=== PATIENT | female | born 1975 | race Two or more races ===

== ENCOUNTER 2018-06-15 16:18 | Inpatient (IN) | payer OTHER ==
[2018-06-15 16:31] VITALS: BMI 26.5
--- NOTE | 2018-06-15 19:15 | PDOC ---
History of Present Illness - General Chief Complaint: Pain, Acute Stated Complaint: FEVER/ABD PAIN Time Seen by Provider: 06/15/18 19:15 - History of Present Illness Initial Comments: 43 year old female with PMH of one kidney presenting with right sided flank pain and right sided abdominal pain for the past 2 days. This started all of a sudden yesterday afternoon and she describes it as a sharp pain that radiates up and down her right flank, right back, and right abdomen. She admits to one fever yesterday 102 degrees. She did not take any medication for her symptoms. No prandial or positional relation pain and she denies nausea, vomiting, diarrhea, or other symptoms. 06/15/18 20:18 Past History - Past Medical History Allergies/Adverse Reactions: Allergies Allergy/AdvReac Type Severity Reaction Status Date / Time No Known Allergies Allergy Verified 06/15/18 16:28 Home Medications: Ambulatory Orders Oxycodone HCl/Acetaminophen [Percocet 5-325 mg Tablet] 1 - 2 tab PO Q6H #20 tablet MDD 4 11/03/15 Acetaminophen [Tylenol .Regular Strength -] 650 mg PO Q6H PRN #0 tablet Cephalexin [Keflex] 500 mg PO TID #21 capsule 11/08/15 Ibuprofen [Motrin -] 600 mg PO Q6H PRN #30 tablet 11/08/15 Mag Hydrox/Al Hydrox/Simeth [Mylanta Oral Suspension -] 30 ml PO Q8H PRN #0 cup 11/08/15 Anemia: No Asthma: No Cancer: No Cardiac Disorders: No CVA: No COPD: No HTN: No Seizures: No Thyroid Disease: No - Immunization History Immunization Up to Date: Yes - Suicide/Smoking/Psychosocial Hx Smoking History: Never smoked Have you smoked in the past 12 months: No Hx Alcohol Use: No Drug/Substance Use Hx: No Substance Use Type: None Review of Systems - Review of Systems Constitutional: No: See HPI, Chills, Diaphoresis, Fever Respiratory: No: Cough, Orthopnea, Shortness of Breath Cardiac (ROS): No: Chest Pain, Irregular Heart Rate ABD/GI: No: Constipated, Diarrhea, Nausea, Vomiting : No: Dysuria, Discharge Musculoskeletal: No: Back Pain Integumentary: No: Flushing, Lesions, Lumps Neurological: No: Numbness, Weakness Psychiatric: No: Anxiety, Depression *Physical Exam - Vital Signs Last Vital Signs Temp Pulse Resp BP Pulse Ox 98.5 F 102 H 18 117/69 100 06/15/18 16:29 06/15/18 16:29 06/15/18 16:29 06/15/18 16:29 06/15/18 16:29 - Physical Exam General Appearance: Yes: Nourished, Appropriately Dressed. No: Apparent Distress HEENT: positive: EOMI, JC, Normal ENT Inspection, Normal Voice Neck: positive: Trachea midline, Normal Thyroid, Supple. negative: Tender, Rigid Respiratory/Chest: positive: Lungs Clear, Normal Breath Sounds. negative: Chest Tender, Respiratory Distress, Accessory Muscle Use Cardiovascular: positive: Regular Rhythm, Regular Rate Gastrointestinal/Abdominal: positive: Normal Bowel Sounds, Flat, Soft. negative : Tender Lymphatic: negative: Tenderness Musculoskeletal: positive: CVA Tenderness (right sided) Extremity: positive: Normal Capillary Refill, Normal Inspection, Normal Range of Motion. 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 CT not demonstrating stone but given she has one kidney (and now infected), it is prudent to bring her in for IV antibiotics. Further corroborating admission criteria, she does meet SIRS criteria and subsequently sepsis. Given Rocephin 1G and 1 L NS. 06/15/18 23:06 Signed out to medicine team and will be admitted under Dr. Osborn. 06/16/18 00:30 *DC/Admit/Observation/Transfer Diagnosis at time of Disposition: Renal agenesis, Pyelonephritis Sepsis Qualifiers: Sepsis type: sepsis due to unspecified organism Qualified Code(s): A41.9 - Sepsis, unspecified organism - Discharge Dispostion Condition at time of disposition: Stable Decision to Admit order: Yes - Referrals Referrals: Mariajose Guevara MD [Primary Care Provider] - - Patient Instructions - Post Discharge Activity
[2018-06-15] MEDS ORDERED: ACETAMINOPHEN 1000 MG/100 ML VIAL (NON FORMULARY) IVPB ONE (19:35)
[2018-06-15] MEDS ORDERED: ACETAMINOPHEN INJECTION 100 ML IVPB ONE (20:10)
[2018-06-15 20:16] LABS: BASO % 0.4 % (0-2.0); HEMOGLOBIN 13.7 GM/dL (10.7-15.3); LYMPH % 5.2 % (8-40); MCH 31.8 pg (25.7-33.7); MCHC 33.5 g/dl (32.0-36.0); MEAN PLT VOLUME 9.5 fl (7.5-11.1); NEUT % 86.4 % (42.8-82.8); PLATELET COUNT 188 K/MM3 (134-434); RBC 4.31 M/mm3 (3.60-5.2); RDW 13.9 % (11.6-15.6); WHITE BLOOD COUNT 14.3 K/mm3 (4.0-10.0)
[2018-06-15 20:36] LABS: INR 1.36 (0.83-1.09); PROTHROMBIN TIME (PATIENT) 16.1 SEC (9.7-13.0)
[2018-06-15 20:37] LABS: EPI CELLS 6.6 /HPF (0-5/HPF); HCG,QUALITATIVE URINE Negative; PH,URINE 7.5 (5.0-8.0); URINE APPEARANCE CLEAR; URINE BACTERIA 8550.6 /hpf (NEGATIVE); URINE BILIRUBIN NEGATIVE (NEGATIVE); URINE CASTS 1 /lpf (0-8); URINE COLOR YELLOW; URINE GLUCOSE (UA) NEGATIVE (NEGATIVE); URINE KETONE TRACE (NEGATIVE); URINE LEUK ESTERASE 1+ (NEGATIVE); URINE NITRITE POSITIVE (NEGATIVE); URINE PROTEIN NEGATIVE (NEGATIVE); URINE RBC 9 /hpf (0-4); URINE UROBILINOGEN 0.2 mg/dL (0.2-1.0); URINE WBC 16 /hpf (0-5)
--- NOTE | 2018-06-15 20:38 | PDOC ---
Documentation entered by Placido Flores SCRIBE, acting as scribe for Kan Loaiza MD. Kan Loaiza MD: This documentation has been prepared by the Sandra dumont Nirvannie, SCRIBE, under my direction and personally reviewed by me in its entirety. I confirm that the documentation accurately reflects all work, treatment, procedures, and medical decision making performed by me. Attending Attestation - Resident Resident Name: Yony Landmoreliahuong - ED Attending Attestation I have performed the following: I have examined & evaluated the patient, The case was reviewed & discussed with the resident, I agree w/resident's findings & plan - HPI HPI: 06/15/18 20:42 The patient is a 43 year old female, with a significant past medical history of unknown kidney problems, who presents to the emergency department with, right sided flank pain radiating to her right sided abdomen and fever (Tmax 102F). Patient denies any nausea, vomiting, or diarrhea. Allergies: NKDA Primary Care Physician: Dr. Guevara - Physicial Exam PE: 06/15/18 20:32 Patient is awake and alert, obese, in mild distress Normocephalic and atraumatic PERRLA, EOMI, no scleral icterus CTA RRR abdomen is soft, nontender, nondistended; + right CVA tenderness to palpation - Medical Decision Making 06/15/18 20:33 Patient is a 43-year-old female with history of unilateral renal agenesis presents with atraumatic right flank pain. Differential diagnoses includes pyelonephritis versus nephrolithiasis. Appendicitis is unlikely. We'll obtain CBC/CMP/UA. Will obtain CT of abdomen and pelvis. Will reassess. 06/15/18 23:19 Patient reassessed. Right CVA tenderness noted. CBC reveals leukocytosis with predominance of neutrophils. Urinalysis reveals nitrite positive pyuria. CT of abdomen and pelvis reveals hypertrophic right kidney likely compensatory in nature without evidence of hydronephrosis or nephrolithiasis. Clinical pyelonephritis in a patient with solitary kidney is suspected. Patient will require admission for IV antibiotics.
[2018-06-15 20:40] LABS: ALBUMIN 3.4 g/dl (3.4-5.0); ALK PHOS 85 U/L (45-117); AMYLASE 82 U/L (25-115); ANION GAP 7 MMOL/L (8-16); BILIRUBIN,TOTAL 0.4 mg/dL (0.2-1); BLOOD UREA NITROGEN 10 mg/dL (7-18); CHLORIDE 104 mmol/L (98-107); CO2 26 mmol/L (21-32); CREATININE 0.9 mg/dL (0.55-1.3); GLUCOSE,RANDOM 102 mg/dL (74-106); LIPASE 116 U/L (73-393); POTASSIUM 4.2 mmol/L (3.5-5.1); SGOT/AST 17 U/L (15-37); SGPT/ALT 26 U/L (13-61); SODIUM 137 mmol/L (136-145); TOT PROT 7.4 g/dl (6.4-8.2)
[2018-06-15 20:55] LABS: CALCIUM 9.1 mg/dL (8.5-10.1)
[2018-06-15] MEDS ORDERED: CEFTRIAXONE 1,000 MG in DEXTROSE 5%-WATER - 50 ML IVPB ONE (22:08)
[2018-06-15] MEDS ORDERED: CEFTRIAXONE 1 GM/50 ML BAG ONE (22:36)
--- NOTE | 2018-06-15 23:14 | PN ---
Teaching Attending Note Name of Resident: Chela Mcnair ATTENDING PHYSICIAN STATEMENT I saw and evaluated the patient. I reviewed the resident's note and discussed the case with the resident. I agree with the resident's findings and plan as documented. SUBJECTIVE: Patient is a 43 year old woman with PMH of solitary right kidney presenting with right sided flank pain and right sided abdominal pain for the past 2 days. This started all of a sudden yesterday afternoon and she describes it as a sharp pain that radiates up and down her right flank, right back, and right abdomen. She admits to one fever yesterday 102 degrees. She did not take any medication for her symptoms. No prandial or positional relation pain and she denies nausea, vomiting, diarrhea, or other symptoms. OBJECTIVE: Alert Vital Signs Period Temp Pulse Resp BP Sys/Harris Pulse Ox Last 24 Hr 98.5 F-98.8 F 102-109 18-18 104-117/64-69 100 HEENT: No Jaundice, eye redness or discharge, PERRLA, EOMI. Normocephalic, atraumatic. External ears are normal and hearing is grossly intact. No nasal discharge. Neck: Supple, nontender. No palpable adenopathy or thyromegaly. No JVD Chest: Good effort. Clear to auscultation and percussion. Heart: Regular. No S3, rub or murmur Abdomen: Not distended, soft, nontender and no HSM. No rebound or guarding. Normal bowel sounds. Ext: Peripheral pulses intact. No leg edema. Skin: Warm and dry. No petechiae, rash or ecchymosis. Neuro: Alert. Oriented x3. CN 2-12 grossly intact. Sensation grossly intact in all four extremities and DTR are symmetric. Psych: Appropriate mood and affect. Good insight. Home Medications Medication Instructions Recorded Oxycodone HCl/Acetaminophen 1 - 2 tab PO Q6H #20 tablet MDD 4 11/03/15 [Percocet 5-325 mg Tablet] Acetaminophen [Tylenol .Regular 650 mg PO Q6H PRN #0 tablet 11/08/15 Strength -] Cephalexin [Keflex] 500 mg PO TID #21 capsule 11/08/15 Ibuprofen [Motrin -] 600 mg PO Q6H PRN #30 tablet 11/08/15 Mag Hydrox/Al Hydrox/Simeth 30 ml PO Q8H PRN #0 cup 11/08/15 [Mylanta Oral Suspension -] Abnormal Lab Results 06/15/18 06/15/18 06/15/18 20:00 20:00 20:00 WBC 14.3 H Absolute Neuts (auto) 12.3 H Neutrophils % 86.4 H D Lymphocytes % 5.2 L D PT with INR 16.10 H INR 1.36 H Anion Gap 7 L Urine Ketones Urine Blood Urine Nitrite Ur Leukocyte Esterase 06/15/18 20:15 WBC Absolute Neuts (auto) Neutrophils % Lymphocytes % PT with INR INR Anion Gap Urine Ketones Trace H Urine Blood 1+ H Urine Nitrite Positive H Ur Leukocyte Esterase 1+ H ASSESSMENT AND PLAN: 1. Solitary right kidney/Pyelonephritis - CT scan shows large right kidney with no calculus or hydronephrosis. 2. DVT prophylaxis - Lovenox 40 mg SQ q 24 hours. 3. Advance directives - Full code
--- NOTE | 2018-06-16 02:29 | HP ---
CHIEF COMPLAINT: R- Flank Pain, R- sided Abdominal Pain PCP: Dr. Derek Walter HISTORY OF PRESENT ILLNESS: This is a 43 y/o young woman with a PMHx of One Kidney. Who presents to the ED with severe right flank pain and right sided abdominal pain with subjective fever 104 and chills x 2 days. Patient is Indonesian speaking [employer] line used # [id number], Michelle. Patient reports having flank and right sided pain x 2 days with fever from 102- 104 at home taking Tylenol which reduced the fever but no pain relief. Patient denies dysuria and frequency. Patient denies cough, dizziness, SOB, CP, N/V/D, constipation. Patient denies recent sick contacts. ER course was notable for: (1) WBC 14.3 (2) UA- trace ketones, +1 blood, +3 nitrate, +1 leukoctye esterase (3) CTAP_ R- kidney parenchymal swelling- acute pyelonephritis, L- kidney severe atrophy Recent Travel: None PAST MEDICAL HISTORY: One Kidney PAST SURGICAL HISTORY: Childbirth Social History: Smoking: Never Alcohol: Denies Drugs: Denies Lives with her daughter Family History: Father: Diabetes Mother: HTN Allergies No Known Allergies Allergy (Verified 06/15/18 16:28) HOME MEDICATIONS: Home Medications Medication Instructions Recorded Oxycodone HCl/Acetaminophen 1 - 2 tab PO Q6H #20 tablet MDD 4 11/03/15 [Percocet 5-325 mg Tablet] Acetaminophen [Tylenol .Regular 650 mg PO Q6H PRN #0 tablet 11/08/15 Strength -] Cephalexin [Keflex] 500 mg PO TID #21 capsule 11/08/15 Ibuprofen [Motrin -] 600 mg PO Q6H PRN #30 tablet 11/08/15 Mag Hydrox/Al Hydrox/Simeth 30 ml PO Q8H PRN #0 cup 11/08/15 [Mylanta Oral Suspension -] REVIEW OF SYSTEMS CONSTITUTIONAL: Absent: fever, chills, diaphoresis, generalized weakness, malaise, loss of appetite, weight change HEENT: Absent: rhinorrhea, nasal congestion, throat pain, throat swelling, difficulty swallowing, mouth swelling, ear pain, eye pain, visual changes CARDIOVASCULAR: Absent: chest pain, syncope, palpitations, irregular heart rate, lightheadedness , peripheral edema RESPIRATORY: Absent: cough, shortness of breath, dyspnea with exertion, orthopnea, wheezing, stridor, hemoptysis GASTROINTESTINAL: abdominal pain, Absent: abdominal distension, nausea, vomiting, diarrhea, constipation, melena, hematochezia GENITOURINARY: right flank pain Absent: dysuria, frequency, urgency, hesitancy, hematuria, genital pain MUSCULOSKELETAL: Absent: myalgia, arthralgia, joint swelling, back pain, neck pain SKIN: Absent: rash, itching, pallor HEMATOLOGIC/IMMUNOLOGIC: Absent: easy bleeding, easy bruising, lymphadenopathy, frequent infections ENDOCRINE: Absent: unexplained weight gain, unexplained weight loss, heat intolerance, cold intolerance NEUROLOGIC: Absent: headache, focal weakness or paresthesias, dizziness, unsteady gait, seizure, mental status changes, bladder or bowel incontinence PSYCHIATRIC: Absent: anxiety, depression, suicidal or homicidal ideation, hallucinations. PHYSICAL EXAMINATION Vital Signs - 24 hr 06/15/18 06/15/18 16:29 21:09 Temperature 98.5 F 98.8 F Pulse Rate 102 H Pulse Rate [ 109 H Left] Respiratory 18 18 Rate Blood Pressure 117/69 Blood Pressure 104/64 [Left] O2 Sat by Pulse 100 Oximetry (%) GENERAL: Awake, alert, and fully oriented, in no acute distress. HEAD: Normal with no signs of trauma. EYES: Pupils equal, round and reactive to light, extraocular movements intact, sclera anicteric, conjunctiva clear. No lid lag. EARS, NOSE, THROAT: Ears normal, nares patent, oropharynx clear without exudates. Dry mucous membranes. NECK: Normal range of motion, supple without lymphadenopathy, JVD, or masses. LUNGS: Breath sounds equal, clear to auscultation bilaterally. No wheezes, and no crackles. No accessory muscle use. HEART: Regular rate and rhythm, normal S1 and S2 without murmur, rub or gallop. ABDOMEN: Soft, tenderness to RUQ, RLQ, not distended, normoactive bowel sounds, no guarding, no rebound, no masses. No hepatomegaly or splenomegaly. MUSCULOSKELETAL: Right CVA tenderness. Normal range of motion at all joints. No bony deformities or tenderness. No Left CVA tenderness. UPPER EXTREMITIES: 2+ pulses, warm, well-perfused. No cyanosis. No clubbing. No peripheral edema. LOWER EXTREMITIES: 2+ pulses, warm, well-perfused. No calf tenderness. No peripheral edema. NEUROLOGICAL: Cranial nerves II-XII intact. Normal speech. Normal gait. PSYCHIATRIC: Cooperative. Good eye contact. Appropriate mood and affect. SKIN: Warm, dry, normal turgor, no rashes or lesions noted, normal capillary refill. Tattoos Laboratory Results - last 24 hr 06/15/18 06/15/18 06/15/18 20:00 20:00 20:00 WBC 14.3 H RBC 4.31 Hgb 13.7 Hct 41.0 MCV 95.0 MCH 31.8 MCHC 33.5 RDW 13.9 Plt Count 188 D MPV 9.5 D Absolute Neuts (auto) 12.3 H Neutrophils % 86.4 H D Lymphocytes % 5.2 L D Monocytes % 8.0 Eosinophils % 0.0 D Basophils % 0.4 Nucleated RBC % 0 PT with INR 16.10 H INR 1.36 H Sodium 137 Potassium 4.2 Chloride 104 Carbon Dioxide 26 Anion Gap 7 L BUN 10 Creatinine 0.9 Creat Clearance w eGFR 67.71 Random Glucose 102 Calcium 9.1 Total Bilirubin 0.4 AST 17 ALT 26 Alkaline Phosphatase 85 Total Protein 7.4 Albumin 3.4 Total Amylase 82 Lipase 116 Urine Color Urine Appearance Urine pH Ur Specific Braxton Urine Protein Urine Glucose (UA) Urine Ketones Urine Blood Urine Nitrite Urine Bilirubin Urine Urobilinogen Ur Leukocyte Esterase Urine WBC (Auto) Urine RBC (Auto) Urine Casts (Auto) U Epithel Cells (Auto) Urine Bacteria (Auto) Urine HCG, Qual 06/15/18 20:15 WBC RBC Hgb Hct MCV MCH MCHC RDW Plt Count MPV Absolute Neuts (auto) Neutrophils % Lymphocytes % Monocytes % Eosinophils % Basophils % Nucleated RBC % PT with INR INR Sodium Potassium Chloride Carbon Dioxide Anion Gap BUN Creatinine Creat Clearance w eGFR Random Glucose Calcium Total Bilirubin AST ALT Alkaline Phosphatase Total Protein Albumin Total Amylase Lipase Urine Color Yellow Urine Appearance Clear Urine pH 7.5 D Ur Specific Braxton 1.010 Urine Protein Negative Urine Glucose (UA) Negative Urine Ketones Trace H Urine Blood 1+ H Urine Nitrite Positive H Urine Bilirubin Negative Urine Urobilinogen 0.2 Ur Leukocyte Esterase 1+ H Urine WBC (Auto) 16 Urine RBC (Auto) 9 Urine Casts (Auto) 1 U Epithel Cells (Auto) 6.6 Urine Bacteria (Auto) 8550.6 Urine HCG, Qual Negative ASSESSMENT/PLAN: This is a 43 y/o woman admitted for Acute Pyelonephritis, Complicated UTI for further evaluation of their emergent condition. Plan: See Problem List FEN D51/2NS@100ml/hr Replete lytes prn NPO advance ad nelda DVT ppx OOB SCDs Heparin SQ Code: Full Code Dispo: Requires Inpatient Care Problem List - Problem (1) Pyelonephritis Assessment/Plan: Likely secondary to UTI UA showed +1 blood/leukocyte esterase, +nitrate, trace ketones Urine Culture-pending Ceftriaxone started Will continue as 2nd line therapy awaiting culture-reports Appreciate Urology Consult Monitor CBC, BMP Monitor vitals Continue IVF Pain Mgmt, Morphine IV until able tolerate PO pain meds Code(s): N12 - TUBULO-INTERSTITIAL NEPHRITIS, NOT SPCF ACUTE OR CHRONIC (2) UTI (urinary tract infection) Assessment/Plan: Will treat for 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 - New Patient This patient is new to me today: Yes Date on this admission: 06/16/18 - Critical Care Critical Care patient: No
[2018-06-16] MEDS ORDERED: MORPHINE SULFATE 2 MG/ML VIAL IVPUSH ONE (03:17)
[2018-06-16] MEDS: DEXTROSE 5%-0.45% SALINE 1,000 ML IV SCH ×2 (03:46→16:46)
[2018-06-16] MEDS: HEPARIN NA (PORCINE) 5,000 UNITS/ML 1ML VIAL SQ SCH ×3 (06:04→22:01)
[2018-06-16 08:47] LABS: BASO % 0.2 % (0-2.0); EOS % 0.1 % (0-4.5); HEMATOCRIT 36.8 % (32.4-45.2); HEMOGLOBIN 12.6 GM/dL (10.7-15.3); LYMPH % 4.7 % (8-40); MCH 32.1 pg (25.7-33.7); MCHC 34.2 g/dl (32.0-36.0); MEAN CELL VOLUME 94.1 fl (80-96); MEAN PLT VOLUME 9.3 fl (7.5-11.1); MONO % 9.5 % (3.8-10.2); NEUT % 85.5 % (42.8-82.8); PLATELET COUNT 170 K/MM3 (134-434); RBC 3.91 M/mm3 (3.60-5.2); RDW 13.7 % (11.6-15.6); WHITE BLOOD COUNT 10.5 K/mm3 (4.0-10.0)
[2018-06-16 09:17] LABS: ANION GAP 8 MMOL/L (8-16); BLOOD UREA NITROGEN 9 mg/dL (7-18); CALCIUM 8.2 mg/dL (8.5-10.1); CHLORIDE 108 mmol/L (98-107); CO2 23 mmol/L (21-32); CREATININE 0.9 mg/dL (0.55-1.3); GLUCOSE,RANDOM 122 mg/dL (74-106); POTASSIUM 3.7 mmol/L (3.5-5.1); SODIUM 140 mmol/L (136-145)
--- NOTE | 2018-06-16 10:56 | PN ---
Progress Note, Physician Chief Complaint: Pyelonephritis L Kidney atrophy History of Present Illness: Previous notes and events reviewed awake and alert NAD denies hematuria, dysuria c/o RLQ and flank pain - Current Medication List Current Medications: Active Medications Heparin Sodium (Porcine) (Heparin -) 5,000 unit SQ TID [facility] Last Admin: 06/16/18 06:04 Dose: Not Given Dextrose/Sodium Chloride (D5-1/2ns -) 1,000 mls @ 100 mls/hr IV ASDIR [facility] Last Admin: 06/16/18 03:46 Dose: 100 mls/hr - Objective Vital Signs: Vital Signs Temperature 98.2 F 06/16/18 09:46 Pulse Rate 96 H 06/16/18 09:46 Respiratory Rate 18 06/16/18 09:46 Blood Pressure 101/58 L 06/16/18 09:46 O2 Sat by Pulse Oximetry (%) 98 06/16/18 05:34 Constitutional: Yes: No Distress, Calm Eyes: Yes: Conjunctiva Clear HENT: Yes: Atraumatic Cardiovascular: Yes: Regular Rate and Rhythm Respiratory: Yes: Regular, CTA Bilaterally Gastrointestinal: Yes: Normal Bowel Sounds, Soft, Tenderness (RLQ) Genitourinary: Yes: CVA Tenderness - Right Musculoskeletal: Yes: WNL Extremities: Yes: WNL Edema: No Neurological: Yes: Alert, Oriented Psychiatric: Yes: Alert, Oriented Labs: CBC, BMP 06/16/18 08:30 06/16/18 08:30 INR, PTT INR 1.36 (0.83-1.09) H 06/15/18 20:00 - ....Imaging Cat Scan: Report Reviewed Problem List - Problems (1) Pyelonephritis Assessment/Plan: -Abd CT scan shows R kidney is somewhat enlarged measuring 12 x 6.7 x 6.4cm which may be on the basis of compensatory hypertrophy and/or parenchymal swelling -IV Ceftriaxone -WBC 10.5 -afebrile -UA shows trace ketones, blood 1+, nitrite positive, leuk 1+ -UC pending -urology consult -IV hydration -pain management Code(s): N12 - TUBULO-INTERSTITIAL NEPHRITIS, NOT SPCF ACUTE OR CHRONIC (2) Renal agenesis Assessment/Plan: -renal consult -Abd CT scan shows very small amount of residual renal tissue seen within L renal fossa measuring 2x 1.2 x 0.5cm and 1.3cm cyst seen projecting posteriorly from residual renal tissue -BUN/Cr 9/0.9 Code(s): Q60.2 - RENAL AGENESIS, UNSPECIFIED (3) UTI (urinary tract infection) Assessment/Plan: -IV Ceftriaxone -ID consult -WBC 10.5 -afebrile -UA shows trace ketones, blood 1+, nitrite positive, leuk 1+ -UC pending -urology consult -IV hydration -pain management Code(s): N39.0 - URINARY TRACT INFECTION, SITE NOT SPECIFIED Assessment/Plan see problem list dvt ppx
--- NOTE | 2018-06-16 12:00 | PN ---
Progress Note (short form) - Note Progress Note: ID consult dictated imp/reccd probable pyelonephritis continue rocephin no history of MRDO history onf only one functional kidney- would avoid nephrotoxic drugs f/u cultures dw hospitalist Problem List - Problems (1) Pyelonephritis Code(s): N12 - TUBULO-INTERSTITIAL NEPHRITIS, NOT SPCF ACUTE OR CHRONIC (2) Solitary kidney Code(s): Q60.0 - RENAL AGENESIS, UNILATERAL
--- NOTE | 2018-06-16 12:43 | CONSULT ---
Consult Consult Specialty:: Nephrology ( [facility]/ [facility]) Reason for Consultation:: Patiet with unilateral renal agenesis admitted with acute pyelonephritis of the solitary kidney. - History of Present Illness Chief Complaint: Right flank pains. History of Present Illness: 43 year old female with PMH of left renal agenesis presenting with right sided flank pain and right sided abdominal pain. She admits to one episode of fever yesterday 102 degrees. She is known to have left renal agenesis. Renal fuctions and BP normal. - History Source History Provided By: Patient Limitations to Obtaining History: No Limitations - Past Medical History Cardio/Vascular: No: CHF, HTN Pulmonary: No: Asthma Gastrointestinal: No: Ascites, Cancer, Constipation, Inflamatory Bowel Disease Renal/: No: Renal Failure, Renal Inusuff, Hematuria, Renal Calculi ...LMP: 11/03/15 - Alcohol/Substance Use Hx Alcohol Use: No - Smoking History Smoking history: Never smoked Have you smoked in the past 12 months: No Home Medications - Allergies Allergies/Adverse Reactions: Allergies Allergy/AdvReac Type Severity Reaction Status Date / Time No Known Allergies Allergy Verified 06/15/18 16:28 - Home Medications Home Medications: Ambulatory Orders Oxycodone HCl/Acetaminophen [Percocet 5-325 mg Tablet] 1 - 2 tab PO Q6H #20 tablet MDD 4 11/03/15 Acetaminophen [Tylenol .Regular Strength -] 650 mg PO Q6H PRN #0 tablet Cephalexin [Keflex] 500 mg PO TID #21 capsule 11/08/15 Ibuprofen [Motrin -] 600 mg PO Q6H PRN #30 tablet 11/08/15 Mag Hydrox/Al Hydrox/Simeth [Mylanta Oral Suspension -] 30 ml PO Q8H PRN #0 cup 11/08/15 Review of Systems - Review of Systems Constitutional: reports: Chills, Fever, Weakness. denies: Loss of Appetite HENT: denies: Difficult Swallowing Neck: denies: Decreased ROM Cardiovascular: denies: Chest Pain, Palpitations, Shortness of Breath Respiratory: denies: Cough, SOB Gastrointestinal: reports: Abdominal Pain. denies: Vomiting Genitourinary: reports: Flank Pain, Frequency. denies: Burning, Dysuria, Hematuria Physical Exam Vital Signs: Vital Signs Temperature 98.2 F 06/16/18 09:46 Pulse Rate 96 H 06/16/18 09:46 Respiratory Rate 18 06/16/18 09:46 Blood Pressure 101/58 L 06/16/18 09:46 O2 Sat by Pulse Oximetry (%) 98 06/16/18 05:34 Constitutional: Yes: Well Nourished, Anxious Eyes: Yes: Conjunctiva Clear HENT: Yes: Normocephalic Neck: Yes: Trachea Midline Cardiovascular: Yes: Regular Rate and Rhythm, S1, S2 Respiratory: Yes: CTA Bilaterally Gastrointestinal: Yes: Normal Bowel Sounds, Soft, Abdomen, Obese, Tenderness Renal/: Yes: CVA Tenderness - Right Edema: No Labs: CBC, BMP 06/16/18 08:30 06/16/18 08:30 Assessment/Plan 43 year old female with PMH of left renal agenesis presenting with right sided flank pain and right sided abdominal pain. She admits to one episode of fever yesterday 102 degrees. She is known to have left renal agenesis. Renal fuctions and BP normal. Acute Pyeloephritis in the solitary right kidney. Renal functions normal. BP normal. Concur with the current antibiotics regimen. No need to modify dosage. No objection to start oral feeding. Will cotinue IV fluids. Thank you. Will follow with you. Tara Agudelo MD
--- NOTE | 2018-06-16 12:53 | CONS ---
DATE OF CONSULTATION: 06/16/2018 DATE OF DICTATION: 06/16/2018 HISTORY OF PRESENT ILLNESS: This is a 43-year-old woman originally from [facility], last traveled there in August. She presents with a 2-day history of right-sided flank pain. On she had fevers with chills, which subsequently subsided. She denies any nausea. She denies any vomiting. She has had normal bowel movements. She has no dysuria. She has no cough. She has had no sick contacts. 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 SURGICAL HISTORY: She has had an ectopic . SOCIAL HISTORY: There is no history of any cigarette, alcohol or substance use. She lives with her daughter. FAMILY HISTORY: Notable for diabetes in her father and hypertension in her mother. ALLERGIES: She has no known drug allergies. MEDICATIONS: Her current medications are not available. REVIEW OF SYSTEMS: She is hungry and she wants to eat. There is no history. Pertinent history is as per HPI. She has no chest pain, shortness of breath, or cough. PHYSICAL EXAMINATION: General: She is awake, alert. Vitals: T max is 100.1. Current temperature is 98.2, pulse of 96, blood pressure 101/58. Her respiratory rate is 18. She is saturating 98%. HEENT: She was normocephalic. Her eyes are anicteric. Neck: Supple. She has no thrush or pharyngitis. Lungs: Her lungs are clear to auscultation. Heart: Her heart is regular rate and rhythm. Abdomen: Soft. She has mild right upper quadrant and right lower quadrant tenderness to exam. Extremities: Without edema. LABORATORY STUDIES: Labs are notable for an admission white count of 14.3. This morning is 10.5, hemoglobin 12.6, platelets are 170. INR is 1.3. BUN is 9 and creatinine 0.9 with normal LFTs. Urinalysis has 1+ leukocytes with 16 white cells. test was negative. Urine and blood cultures are pending. She had a CAT scan of her abdomen and pelvis done in the emergency room that shows a probable 1.5 cm right ovarian cyst. It shows atrophy of the left kidney and a large right kidney that is somewhat enlarged. There was no definite perirenal soft tissue stranding. In summary, this is a young lady with fevers, right-sided pain most likely on the basis of pyelonephritis. I would continue ceftriaxone and follow up her cultures. She denies any history of recent UTI. She has not been on any oral antibiotics making the likelihood of drug resistant organisms less likely. Further recommendations to follow. The case was discussed with the hospitalist. SOFIE BLACK M.D. OPAL/[id number]
[2018-06-16] MEDS: CEFTRIAXONE 1 GM in DEXTROSE 5%-WATER - 50 ML IVPB SCH (13:05)
--- NOTE | 2018-06-16 15:02 | EKG ---
Test Reason : Blood Pressure : / mmHG Vent. Rate : 096 BPM Atrial Rate : 096 BPM P-R Int : 146 ms QRS Dur : 072 ms QT Int : 328 ms P-R-T Axes : 068 082 043 degrees QTc Int : 414 ms NORMAL SINUS RHYTHM NORMAL ECG WHEN COMPARED WITH ECG OF 06-NOV-2015 00:56, T WAVE AMPLITUDE HAS INCREASED IN ANTERIOR LEADS Confirmed by EVELYNE HAMILTON MD ([id number]) on 06/16/2018 3:01:41 PM Referred By: Taylor VALENZUELA Confirmed By:EVELYNE HAMILTON MD
[2018-06-16] MEDS ORDERED: AZTREONAM 0.5 GM in DEXTROSE 5%-WATER - 50 ML IVPB ONE (23:23)
--- NOTE | 2018-06-16 23:28 | HOSP ---
Subjective - Review of Symptoms Events since last encounter: Nursing staff informed covering hospitalist service Micro lab called to report: blood culture / with gram negative bacilli. Vitals: T99.1, HR 99, BP 116/69, RR 20 Pt currently on ceftriaxone 1gm daily Aztreonam 1gm ordered x 1 dose for broader Gram-negative: Citrobacter spp, Enterobacter spp, Escherichia coli, Haemophilus influenzae, Klebsiella oxytoca, Klebsiella pneumoniae, Proteus mirabilis, Pseudomonas aeruginosa, Serratia marcescens Primary team to determine final plan of care in AM Physical Examination Vital Signs: Vital Signs Temperature 99.1 F 06/16/18 23:00 Pulse Rate 99 H 06/16/18 23:00 Respiratory Rate 20 06/16/18 23:00 Blood Pressure 116/69 06/16/18 23:00 O2 Sat by Pulse Oximetry (%) 99 06/16/18 09:00 Labs: CBC, BMP 06/16/18 08:30 06/16/18 08:30
[2018-06-16] MEDS ORDERED: CIPROFLOXACIN 400 MG/D5W 400 MG/200 ML IVPB IVPB ONE (23:30)
[2018-06-16] MEDS ORDERED: DEXTROSE 5%-WATER - 50 ML IVPB ONE (23:37)
[2018-06-16] MEDS ORDERED: AZTREONAM 1 GM VIAL (RESTRICTED TO ID) ONE (23:37)
[2018-06-16] MEDS ORDERED: AZTREONAM 1 GM in DEXTROSE 5%-WATER - 50 ML IVPB ONE (23:45)
[2018-06-17] MEDS: DEXTROSE 5%-0.45% SALINE 1,000 ML IV SCH (02:42)
[2018-06-17] MEDS: HEPARIN NA (PORCINE) 5,000 UNITS/ML 1ML VIAL SQ SCH ×3 (05:31→21:23)
[2018-06-17 08:34] LABS: HEMATOCRIT 36.8 % (32.4-45.2); HEMOGLOBIN 12.3 GM/dL (10.7-15.3); MCH 31.8 pg (25.7-33.7); MCHC 33.6 g/dl (32.0-36.0); MEAN CELL VOLUME 94.8 fl (80-96); MEAN PLT VOLUME 10.2 fl (7.5-11.1); PLATELET COUNT 164 K/MM3 (134-434); RBC 3.88 M/mm3 (3.60-5.2); RDW 13.6 % (11.6-15.6)
[2018-06-17] MEDS ORDERED: cefTRIAXone SODIUM 1 GM VIAL ONE (08:46)
[2018-06-17] MEDS ORDERED: DEXTROSE 5%-WATER - 50 ML IVPB ONE (08:46)
[2018-06-17 09:00] LABS: ALBUMIN 2.5 g/dl (3.4-5.0); ALK PHOS 63 U/L (45-117); ANION GAP 8 MMOL/L (8-16); BILIRUBIN,TOTAL 0.4 mg/dL (0.2-1); BLOOD UREA NITROGEN 10 mg/dL (7-18); CALCIUM 8.1 mg/dL (8.5-10.1); CHLORIDE 108 mmol/L (98-107); CO2 23 mmol/L (21-32); GLUCOSE,RANDOM 122 mg/dL (74-106); POTASSIUM 4.1 mmol/L (3.5-5.1); SGOT/AST 12 U/L (15-37); SGPT/ALT 19 U/L (13-61); SODIUM 139 mmol/L (136-145)
[2018-06-17] MEDS: CEFTRIAXONE 1 GM in DEXTROSE 5%-WATER - 50 ML IVPB SCH (09:02)
--- NOTE | 2018-06-17 11:20 | PN ---
Progress Note, Physician Chief Complaint: The patient seen and examined in her bed. Comfortable, and feeling better. Maintains good urine output Denies any chest pain. Started o oral feeds. History of Present Illness: 43 year old female with PMH of left renal agenesis presenting with right sided flank pain and right sided abdominal pain. Has pyelonephritis, with positive blood cultures. Sfebrile now. She is known to have left renal agenesis. Renal fuctions and BP normal. - Current Medication List Current Medications: Active Medications Heparin Sodium (Porcine) (Heparin -) 5,000 unit SQ TID [facility] Last Admin: 06/17/18 05:31 Dose: Not Given Dextrose/Sodium Chloride (D5-1/2ns -) 1,000 mls @ 100 mls/hr IV ASDIR [facility] Last Admin: 06/17/18 02:42 Dose: 100 mls/hr Ceftriaxone Sodium 1 gm/ (Dextrose) 50 mls @ 100 mls/hr IVPB DAILY [facility]; Protocol Last Admin: 06/17/18 09:02 Dose: 100 mls/hr - Objective Vital Signs: Vital Signs Temperature 97.9 F 06/17/18 10:08 Pulse Rate 94 H 06/17/18 10:08 Respiratory Rate 20 06/17/18 10:08 Blood Pressure 103/61 06/17/18 10:08 O2 Sat by Pulse Oximetry (%) 99 06/16/18 21:00 Constitutional: Yes: No Distress, Calm Eyes: Yes: Conjunctiva Clear HENT: Yes: Normocephalic Neck: Yes: Trachea Midline Cardiovascular: Yes: Regular Rate and Rhythm, S1, S2 Respiratory: Yes: CTA Bilaterally, Diminished Gastrointestinal: Yes: Normal Bowel Sounds, Soft Genitourinary: Yes: CVA Tenderness - Right (less maya yesterday) Extremities: Yes: WNL Neurological: Yes: Alert, Oriented Labs: CBC, BMP 06/17/18 07:00 06/17/18 07:00 INR, PTT INR 1.36 (0.83-1.09) H 06/15/18 20:00 Problem List - Problems (1) Pyelonephritis Code(s): N12 - TUBULO-INTERSTITIAL NEPHRITIS, NOT SPCF ACUTE OR CHRONIC (2) Renal agenesis Code(s): Q60.2 - RENAL AGENESIS, UNSPECIFIED (3) Sepsis Code(s): A41.9 - SEPSIS, UNSPECIFIED ORGANISM Qualifiers: Sepsis type: sepsis due to unspecified organism Qualified Code(s): A41.9 - Sepsis, unspecified organism (4) Solitary kidney Code(s): Q60.0 - RENAL AGENESIS, UNILATERAL Assessment/Plan 43 year old female with PMH of left renal agenesis presenting with right sided flank pain and right sided abdominal pain. Has Pyelonephritis of the solitary kidney with bacteremia ( GNB) Renal functions normal. BP normal. Concur with the current antibiotics regimen. No need to modify dosage. May D/c iv fluids when ora fluid intake is acceptable. Thank you. Will follow with you. Tara Agudelo MD
--- NOTE | 2018-06-17 12:48 | PN ---
Progress Note, Physician Chief Complaint: Pyelonephritis L Kidney atrophy History of Present Illness: Previous notes and events reviewed awake and alert NAD denies hematuria, dysuria states pain has improved - Current Medication List Current Medications: Active Medications Heparin Sodium (Porcine) (Heparin -) 5,000 unit SQ TID [facility] Last Admin: 06/17/18 05:31 Dose: Not Given Dextrose/Sodium Chloride (D5-1/2ns -) 1,000 mls @ 100 mls/hr IV ASDIR [facility] Last Admin: 06/17/18 02:42 Dose: 100 mls/hr Ceftriaxone Sodium 1 gm/ (Dextrose) 50 mls @ 100 mls/hr IVPB DAILY [facility]; Protocol Last Admin: 06/17/18 09:02 Dose: 100 mls/hr - Objective Vital Signs: Vital Signs Temperature 97.9 F 06/17/18 10:08 Pulse Rate 94 H 06/17/18 10:08 Respiratory Rate 20 06/17/18 10:08 Blood Pressure 103/61 06/17/18 10:08 O2 Sat by Pulse Oximetry (%) 100 06/17/18 09:00 Constitutional: Yes: No Distress, Calm Eyes: Yes: Conjunctiva Clear HENT: Yes: Atraumatic Cardiovascular: Yes: Regular Rate and Rhythm Respiratory: Yes: Regular, CTA Bilaterally Gastrointestinal: Yes: Normal Bowel Sounds, Soft Genitourinary: Yes: CVA Tenderness - Right Musculoskeletal: Yes: WNL Extremities: Yes: WNL Edema: No Neurological: Yes: Alert, Oriented Psychiatric: Yes: Alert, Oriented Labs: CBC, BMP 06/17/18 07:00 06/17/18 07:00 INR, PTT INR 1.36 (0.83-1.09) H 06/15/18 20:00 Problem List - Problems (1) Pyelonephritis Assessment/Plan: -Abd CT scan shows R kidney is somewhat enlarged measuring 12 x 6.7 x 6.4cm which may be on the basis of compensatory hypertrophy and/or parenchymal swelling -IV Ceftriaxone -WBC 5.0 -afebrile -UA shows trace ketones, blood 1+, nitrite positive, leuk 1+ -UC and BC positive for lactose fermenting neg bacilli--ID consult -urology consult -IV hydration -pain management Code(s): N12 - TUBULO-INTERSTITIAL NEPHRITIS, NOT SPCF ACUTE OR CHRONIC (2) Renal agenesis Assessment/Plan: -renal on board -Abd CT scan shows very small amount of residual renal tissue seen within L renal fossa measuring 2x 1.2 x 0.5cm and 1.3cm cyst seen projecting posteriorly from residual renal tissue -BUN/Cr 10/1.0 Code(s): Q60.2 - RENAL AGENESIS, UNSPECIFIED (3) UTI (urinary tract infection) Assessment/Plan: -IV Ceftriaxone -ID consult -WBC 5.0 -afebrile -UA shows trace ketones, blood 1+, nitrite positive, leuk 1+ -UC positive for lactose fermenting neg bacilli -urology consult -pain management Code(s): N39.0 - URINARY TRACT INFECTION, SITE NOT SPECIFIED Assessment/Plan see problem list dvt ppx
--- NOTE | 2018-06-17 14:14 | PN ---
Progress Note (short form) - Note Progress Note: feels better minimal flank pain o fever Vital Signs Period Temp Pulse Resp BP Sys/Harris Pulse Ox Last 24 Hr 97.9 F-99.9 F 81-106 20-20 99-116/46-76 99-100 cor-rrr llungs clear abd soft,nt minimal right CVAT ext no edema CBC, BMP 06/17/18 07:00 06/17/18 07:00 Microbiology 06/15/18 20:15 Urine - Urine Clean Catch Urine Culture - Preliminary Lactose Fermenting Neg Bacilli 06/15/18 22:22 Blood - Peripheral Venous Blood Culture - Preliminary Lactose Fermenting Neg Bacilli 06/15/18 22:22 Blood - Peripheral Venous Blood Culture - Preliminary Lactose Fermenting Neg Bacilli a/p pyelonephritis with bacteremia- continue rocephin no history of MRDO f/u cultures in am hopefully home in am doing well history of only one functional kidney- would avoid nephrotoxic drugs f/u cultures dw hospitalist Problem List - Problems (1) Pyelonephritis Code(s): N12 - TUBULO-INTERSTITIAL NEPHRITIS, NOT SPCF ACUTE OR CHRONIC (2) Solitary kidney Code(s): Q60.0 - RENAL AGENESIS, UNILATERAL
[2018-06-17] MEDS ORDERED: guaiFENesin 200 MG/10 ML 10 ML UNIT-DOSE CUPS PO PRN (22:09)
[2018-06-18] MEDS: HEPARIN NA (PORCINE) 5,000 UNITS/ML 1ML VIAL SQ SCH (05:36)
[2018-06-18 07:50] LABS: HEMATOCRIT 36.2 % (32.4-45.2); HEMOGLOBIN 12.6 GM/dL (10.7-15.3); MCH 32.5 pg (25.7-33.7); MCHC 34.9 g/dl (32.0-36.0); MEAN CELL VOLUME 93.1 fl (80-96); MEAN PLT VOLUME 9.3 fl (7.5-11.1); PLATELET COUNT 197 K/MM3 (134-434); RBC 3.89 M/mm3 (3.60-5.2); RDW 13.3 % (11.6-15.6); WHITE BLOOD COUNT 4.3 K/mm3 (4.0-10.0)
[2018-06-18 08:01] LABS: ALBUMIN 2.5 g/dl (3.4-5.0); ALK PHOS 69 U/L (45-117); ANION GAP 6 MMOL/L (8-16); BILIRUBIN,TOTAL 0.2 mg/dL (0.2-1); BLOOD UREA NITROGEN 15 mg/dL (7-18); CALCIUM 8.6 mg/dL (8.5-10.1); CHLORIDE 108 mmol/L (98-107); CO2 24 mmol/L (21-32); CREATININE 0.9 mg/dL (0.55-1.3); GLUCOSE,RANDOM 89 mg/dL (74-106); SGOT/AST 24 U/L (15-37); SGPT/ALT 40 U/L (13-61); SODIUM 138 mmol/L (136-145); TOT PROT 6.4 g/dl (6.4-8.2)
[2018-06-18] MEDS ORDERED: cefTRIAXone SODIUM 1 GM VIAL ONE (09:29)
[2018-06-18] MEDS ORDERED: DEXTROSE 5%-WATER - 50 ML IVPB ONE (09:30)
--- NOTE | 2018-06-18 09:45 | CON.GU ---
Consult Consult Specialty:: right pyelonephritis Reason for Consultation:: right pyelonephritis - History of Present Illness Chief Complaint: right pyelonephritis History of Present Illness: Patient with history of solitary right kidney due to left agenesis who presented with a uti and right pyelonephritis. Patient is currently afebrile without renal colic, nausea or vomiting. - History Source History Provided By: Patient - Past Medical History Cardio/Vascular: No: CHF, HTN Pulmonary: No: Asthma Gastrointestinal: No: Ascites, Cancer, Constipation, Inflamatory Bowel Disease Renal/: No: Renal Failure, Renal Inusuff, Hematuria, Renal Calculi ...LMP: 11/03/15 - Alcohol/Substance Use Hx Alcohol Use: No - Smoking History Smoking history: Never smoked Have you smoked in the past 12 months: No Home Medications - Allergies Allergies/Adverse Reactions: Allergies Allergy/AdvReac Type Severity Reaction Status Date / Time No Known Allergies Allergy Verified 06/15/18 16:28 - Home Medications Home Medications: Ambulatory Orders Oxycodone HCl/Acetaminophen [Percocet 5-325 mg Tablet] 1 - 2 tab PO Q6H #20 tablet MDD 4 11/03/15 Acetaminophen [Tylenol .Regular Strength -] 650 mg PO Q6H PRN #0 tablet Cephalexin [Keflex] 500 mg PO TID #21 capsule 11/08/15 Ibuprofen [Motrin -] 600 mg PO Q6H PRN #30 tablet 11/08/15 Mag Hydrox/Al Hydrox/Simeth [Mylanta Oral Suspension -] 30 ml PO Q8H PRN #0 cup 11/08/15 Physical Exam- Vital Signs: Vital Signs Temperature 98.2 F 06/18/18 06:00 Pulse Rate 79 06/18/18 06:00 Respiratory Rate 18 06/18/18 06:00 Blood Pressure 105/64 06/18/18 06:00 O2 Sat by Pulse Oximetry (%) 100 06/17/18 21:00 Constitutional: Yes: Well Nourished, No Distress, Calm Eyes: Yes: WNL, Conjunctiva Clear, EOM Intact HENT: Yes: WNL, Atraumatic, Normocephalic Neck: Yes: WNL, Supple, Trachea Midline Cardiovascular: Yes: WNL, Regular Rate and Rhythm Respiratory: Yes: WNL, Regular Gastrointestinal: Yes: WNL, Normal Bowel Sounds, Soft Renal/: Yes: WNL Kidneys: Yes: WNL Pelvis: Yes: WNL External Genitalia: Yes: WNL Musculoskeletal: Yes: WNL Extremities: Yes: WNL Integumentary: Yes: WNL Labs: CBC, BMP 06/18/18 06:30 06/18/18 06:30 Imaging - Results Cat Scan: Report Reviewed Assessment/Plan imp right pyelonephritis solitary right kidney due to left renal agenesis plan antibiotics as per ID
--- NOTE | 2018-06-18 10:07 | CON.OBG ---
Consult Consult Specialty:: INTRAVENOUS THERAPY NURSE Reason for Consultation:: Fibroid uterus - History of Present Illness Chief Complaint: Abdominal pain History of Present Illness: 43 yo Para 0, with prior salpingectomy for ectopic , admitted for abdominal pain. She was found to have urinary tract infection. A cat scan was done and showed evidence of a 1.5cm follicular ovarian cyst and a small fibroid. Patient denies any prolonged nor heavy menses. She denies any pelvic pain. She was seen by her INTRAVENOUS THERAPY NURSE ( Dr. Maddox ) this year and there was no issues. - History Source History Provided By: Patient Limitations to Obtaining History: No Limitations - Past Medical History Cardio/Vascular: No: CHF, HTN Pulmonary: No: Asthma Gastrointestinal: No: Ascites, Cancer, Constipation, Inflamatory Bowel Disease Renal/: No: Renal Failure, Renal Inusuff, Hematuria, Renal Calculi ...LMP: 11/03/15 ...: No - Past Surgical History Additional Surgical History: Salpingectomy - Alcohol/Substance Use Hx Alcohol Use: No History of Substance Use: reports: None - Smoking History Smoking history: Never smoked Have you smoked in the past 12 months: No - Social History History of Recent Travel: No Home Medications - Allergies Allergies/Adverse Reactions: Allergies Allergy/AdvReac Type Severity Reaction Status Date / Time No Known Allergies Allergy Verified 06/15/18 16:28 - Home Medications Home Medications: Ambulatory Orders Oxycodone HCl/Acetaminophen [Percocet 5-325 mg Tablet] 1 - 2 tab PO Q6H #20 tablet MDD 4 11/03/15 Acetaminophen [Tylenol .Regular Strength -] 650 mg PO Q6H PRN #0 tablet Cephalexin [Keflex] 500 mg PO TID #21 capsule 11/08/15 Ibuprofen [Motrin -] 600 mg PO Q6H PRN #30 tablet 11/08/15 Mag Hydrox/Al Hydrox/Simeth [Mylanta Oral Suspension -] 30 ml PO Q8H PRN #0 cup 11/08/15 Family Disease History - Family Disease History Family History: Unremarkable Review of Systems - Review of Systems Constitutional: reports: No Symptoms Eyes: reports: No Symptoms HENT: reports: No Symptoms Neck: reports: No Symptoms Cardiovascular: reports: No Symptoms Gastrointestinal: reports: No Symptoms Genitourinary: denies: Pain, Vaginal Bleeding Breasts: reports: No Symptoms Reported Musculoskeletal: reports: No Symptoms Neurological: reports: No Symptoms Psychiatric: reports: No Symptoms Pain Intensity: 3 Physical Exam-INTRAVENOUS THERAPY NURSE Vital Signs: Vital Signs Temperature 98.2 F 06/18/18 06:00 Pulse Rate 79 06/18/18 06:00 Respiratory Rate 18 06/18/18 06:00 Blood Pressure 105/64 06/18/18 06:00 O2 Sat by Pulse Oximetry (%) 100 06/17/18 21:00 Constitutional: Yes: Well Nourished Eyes: Yes: Conjunctiva Clear HENT: Yes: Atraumatic Neck: Yes: Supple Cardiovascular: Yes: Regular Rate and Rhythm Respiratory: Yes: Regular Gastrointestinal: Yes: Normal Bowel Sounds Pelvis: No: Mass, Tenderness External Genitalia: Yes: Normal Vaginal Exam: Yes: Normal Cervix: Yes: Normal Uterus: Yes: Normal Neurological: Yes: Alert, Oriented ...Motor Strength: WNL Psychiatric: Yes: Alert, Oriented Labs: CBC, BMP 06/18/18 06:30 06/18/18 06:30 Problem List - Problems (1) Fibroid uterus Code(s): D25.9 - LEIOMYOMA OF UTERUS, UNSPECIFIED (2) Ovarian cyst Code(s): N83.209 - UNSPECIFIED OVARIAN CYST, UNSPECIFIED SIDE Assessment/Plan Urinary Tract infection Fibroid uterus Ovarian cyst Patient is asymptomatic, therefore no surgery is needed for fibroid. Continue follow up with Dr. Maddox as outpatient.
[2018-06-18] MEDS: CEFTRIAXONE 1 GM in DEXTROSE 5%-WATER - 50 ML IVPB SCH (10:18)
[2018-06-18 10:20] VITALS: BP 107/63; PULSE 93; TEMP 97.7
--- NOTE | 2018-06-18 13:57 | DS ---
Physical Examination Vital Signs: Vital Signs Temperature 97.7 F 06/18/18 10:00 Pulse Rate 93 H 06/18/18 10:00 Respiratory Rate 18 06/18/18 10:00 Blood Pressure 107/63 06/18/18 10:00 O2 Sat by Pulse Oximetry (%) 100 06/18/18 09:00 Constitutional: Yes: Calm Neck: Yes: Trachea Midline Cardiovascular: Yes: Regular Rate and Rhythm, S1, S2 Respiratory: Yes: CTA Bilaterally Gastrointestinal: Yes: Normal Bowel Sounds, Soft Edema: No Neurological: Yes: Alert, Oriented Labs: CBC, BMP 06/18/18 06:30 06/18/18 06:30 Discharge Summary Reason For Visit: PYELONEPHRITIS Current Active Problems Fibroid uterus (Acute) Ovarian cyst (Acute) Pyelonephritis (Acute) Renal agenesis (Acute) Sepsis (Acute) Solitary kidney (Acute) UTI (urinary tract infection) (Acute) Hospital Course: CHIEF COMPLAINT: R- Flank Pain, R- sided Abdominal Pain PCP: Dr. Derek Walter HISTORY OF PRESENT ILLNESS: This is a 43 y/o young woman with a PMHx of One Kidney. Who presents to the ED with severe right flank pain and right sided abdominal pain with subjective fever 104 and chills x 2 days. Patient is Mongolian speaking [employer] used # [id number], Michelle. Patient reports having flank and right sided pain x 2 days with fever from 102- 104 at home taking Tylenol which reduced the fever but no pain relief. Patient denies dysuria and frequency. Patient denies cough, dizziness, SOB, CP, N/V/D, constipation. Patient denies recent sick contacts. ER course was notable for: (1) WBC 14.3 (2) UA- trace ketones, +1 blood, +3 nitrate, +1 leukoctye esterase (3) CTAP_ R- kidney parenchymal swelling- acute pyelonephritis, L- kidney severe atrophy leukocytosis improved seen by urology- iv abx to change to po seen by banjo repairer no indication for surgery for fibroids Condition: Stable - Instructions Referrals: Thom Reed [Non Staff, Medical] - 1 Week Disposition: HOME - Home Medications Comprehensive Discharge Medication List: Ambulatory Orders Oxycodone HCl/Acetaminophen [Percocet 5-325 mg Tablet] 1 - 2 tab PO Q6H #20 tablet MDD 4 11/03/15 Acetaminophen [Tylenol .Regular Strength -] 650 mg PO Q6H PRN #0 tablet Cephalexin [Keflex] 500 mg PO TID #21 capsule 11/08/15 Ibuprofen [Motrin -] 600 mg PO Q6H PRN #30 tablet 11/08/15 Mag Hydrox/Al Hydrox/Simeth [Mylanta Oral Suspension -] 30 ml PO Q8H PRN #0 cup 11/08/15
== END 2018-06-18 14:38 | disposition home or self-care (01) | DRG 720 ==
LOC: JER 16:18 → JERBED 22:08 → J5S 06-16 01:35
PROVIDERS: ADMIT Internal Medicine; ATTEND Family Medicine
DX: A41.9 Sepsis, unspecified organism (principal); N12 Tubulo-interstitial nephritis, not specified as acute or chronic; N39.0 Urinary tract infection, site not specified; Q60.2 Renal agenesis, unspecified; D25.9 Leiomyoma of uterus, unspecified; N83.209 Unspecified ovarian cyst, unspecified side; D72.829 Elevated white blood cell count, unspecified
CPT/HCPCS: 36415; 74176-TC; 80048; 80053; 81003; 82150; 83690; 84703; 85025; 85027; 85610; 87040; 87086; 87186; 93005; 93010; 99282-25; J0131

== ENCOUNTER 2018-12-10 18:01 | Emergency (ER) | payer OTHER ==
[2018-12-10 18:07] VITALS: BP 107/69; PULSE 80; TEMP 98.2; BMI 26.6
--- NOTE | 2018-12-10 19:50 | PDOC ---
History of Present Illness - General Chief Complaint: Pain, Acute Stated Complaint: SENT BY PCP/ DVT Time Seen by Provider: 12/10/18 18:46 - History of Present Illness Initial Comments: 12/10/18 19:49 43-year-old female without comorbidities presents for evaluation of left lower leg pain and swelling x3 days. She states she had a fever 3 days ago at home Past History - Past Medical History Allergies/Adverse Reactions: Allergies Allergy/AdvReac Type Severity Reaction Status Date / Time No Known Allergies Allergy Verified 06/15/18 16:28 Home Medications: Ambulatory Orders NK [No Known Home Medication] 12/10/18 Anemia: No Asthma: No Cancer: No Cardiac Disorders: No CVA: No COPD: No HTN: No Seizures: No Thyroid Disease: No - Surgical History Abdominal Surgery: Yes (ectopic /salpingectomy) - Immunization History Immunization Up to Date: Yes - Psycho Social/Smoking Cessation Hx Smoking History: Never smoked Have you smoked in the past 12 months: No Information on smoking cessation initiated: No Hx Alcohol Use: No Drug/Substance Use Hx: No Substance Use Type: None Review of Systems - Review of Systems Constitutional: Yes: Fever Musculoskeletal: Yes: See HPI *Physical Exam - Vital Signs Last Vital Signs Temp Pulse Resp BP Pulse Ox 98.2 F 80 18 107/69 100 12/10/18 18:04 12/10/18 18:04 12/10/18 18:04 12/10/18 18:04 12/10/18 18:04 - Physical Exam Comments: 12/10/18 19:50 There is a streaking erythemic area with warmth on the medial aspect of the left upper thigh left upper thigh is tender the calf is swollen and tender there are no gross sensorimotor deficits ED Treatment Course - RADIOLOGY Radiology Studies Ordered: Category Date Time Status DUPLEX VASCUL US-1 LEG [US] Stat Ultrasound 12/10/18 19:47 Ordered Discharge - Discharge Information Problems reviewed: No Clinical Impression/Diagnosis: Cellulitis Condition: Stable Disposition: ELOPED - Follow up/Referral Referrals: Derek Walter MD [Primary Care Provider] - - Patient Discharge Instructions - Post Discharge Activity
== END 2018-12-10 20:40 | disposition left against medical advice (07) ==
LOC: JERFT 18:01
DX: L03.116 Cellulitis of left lower limb (principal)
CPT/HCPCS: 93971-TC; 99282-25